=== PATIENT | female | born 1955 | race African-American/Black ===

== ENCOUNTER → 2017-05-31 | Outpatient (REF) | payer SELFPAY | LOC: M LAB REF 10:31 | DX: R10.815 Periumbilic abdominal tenderness (principal) ==

== ENCOUNTER 2017-06-11 05:05 | Inpatient (IN) | payer OTHER, SELFPAY ==
[2017-06-11 06:03] LABS: KETONE, URINE AUTO RFX NEGATIVE (NEGATIVE); MUCUS, URINE RFX SMALL (NEGATIVE); NITRITE, URINE AUTO RFX NEGATIVE (NEGATIVE); RBC, URINE AUTO RFX 3 /HPF (0-3); SPECIFIC GRAVITY UR AUTO RFX 1.032 (1.002-1.035); SQUAM EPITHELIAL CELL UR AURFX 4 /HPF (0-6); WBC, URINE AUTO RFX 6 /HPF (0-3)
[2017-06-11 06:06] LABS: LEUKOCYTE ESTERASE UR AUTO RFX TRACE (NEGATIVE)
[2017-06-11] MEDS: ONDANSETRON 4MG/2ML VIAL (J2405) IV (07:18)
[2017-06-11] MEDS: MORPHINE 4 MG/ML 1ML VIAL (J2270) IV ×2 (07:20→08:50)
[2017-06-11 07:46] LABS: BASO # 0.1 10^3/uL (0.0-0.2); BASO % 0.7 % (0.0-1.0); EOS # 1.4 10^3/uL (0.0-0.50); EOS % 14.9 % (0.0-3.0); HEMOGLOBIN 13.4 g/dl (12.0-16.0); IMMATURE GRANULOCYTE % 0.4 % (0-3.0); LYMPH # 2.7 10^3/uL (1.5-4.5); LYMPH % 28.5 % (24.0-44.0); MEAN CORPUSCULAR HEMOGLOBIN 29.7 pg (27.0-33.0); MEAN CORPUSCULAR HGB CONC 33.5 g/dl (32.0-36.5); MEAN CORPUSCULAR VOLUME 88.7 fl (80.0-96.0); MONO # 0.5 10^3/uL (0.0-0.8); MONO % 5.6 % (0.0-5.0); NEUTROPHILS # 4.7 10^3/uL (1.8-7.7); NEUTROPHILS % 49.9 % (36.0-66.0); PLATELET COUNT, AUTOMATED 382 10^3/uL (150-450); RED BLOOD COUNT 4.51 10^6/uL (4.00-5.40); RED CELL DISTRIBUTION WIDTH 13.2 % (11.5-14.5); WHITE BLOOD COUNT 9.5 10^3/uL (4.0-10.0)
[2017-06-11 07:57] LABS: ALBUMIN 4.2 GM/DL (3.2-5.2); ALBUMIN/GLOBULIN RATIO 0.91 (1.00-1.93); ALKALINE PHOSPHATASE 665 U/L (45-117); ALT/SGPT 826 U/L (12-78); ANION GAP 9 MEQ/L (8-16); AST/SGOT 535 U/L (7-37); BILIRUBIN,TOTAL 1.9 MG/DL (0.2-1.0); BLOOD UREA NITROGEN 24 MG/DL (7-18); CALCIUM LEVEL 9.7 MG/DL (8.8-10.2); CARBON DIOXIDE LEVEL 27 MEQ/L (21-32); CHLORIDE LEVEL 103 MEQ/L (98-107); CREATININE FOR GFR 1.36 MG/DL (0.55-1.30); GLOMERULAR FILTRATION RATE 50.8 (>45); GLUCOSE, FASTING 134 MG/DL (70-100); LIPASE 257 U/L (73-393); POTASSIUM SERUM 4.2 MEQ/L (3.5-5.1); SODIUM LEVEL 139 MEQ/L (136-145); TOTAL PROTEIN 8.8 GM/DL (6.4-8.2)
[2017-06-11] MEDS: NS 1,000 ML IV (08:50)
[2017-06-11] MEDS: fentaNYL 100 MCG/2 ML INJECTION (J3010) IV (11:15)
[2017-06-11] MEDS ORDERED: MORPHINE 4 MG/ML 1ML VIAL (J2270) IV (13:15)
[2017-06-11] MEDS: LR 1,000 ML IV ×2 (13:52→19:28)
[2017-06-11] MEDS: LISINOPRIL 40 MG TAB PO (14:15)
[2017-06-11] MEDS: OMEPRAZOLE 20 MG CAP PO (14:15)
[2017-06-11] MEDS: ATENOLOL 25 MG TAB PO (14:15)
[2017-06-11 17:50] LABS: ALBUMIN 3.6 GM/DL (3.2-5.2); ALBUMIN/GLOBULIN RATIO 0.92 (1.00-1.93); ALKALINE PHOSPHATASE 576 U/L (45-117); ALT/SGPT 810 U/L (12-78); AST/SGOT 531 U/L (7-37); BILIRUBIN,DIRECT 2.8 MG/DL (0.0-0.2); BILIRUBIN,TOTAL 3.6 MG/DL (0.2-1.0); TOTAL PROTEIN 7.5 GM/DL (6.4-8.2)
[2017-06-11] MEDS: ACETAMINOPHEN TAB 650MG DOSE (2X325MG) PO (19:28)
[2017-06-11] MEDS: AMPICILLIN SOD/SULBACTAM SOD 3 GM in D5W MINI-BAG PLUS 100 ML IV (21:09)
[2017-06-12] MEDS: AMPICILLIN SOD/SULBACTAM SOD 3 GM in D5W MINI-BAG PLUS 100 ML IV ×4 (02:58→20:44)
[2017-06-12] MEDS: LR 1,000 ML IV ×3 (05:50→20:45)
[2017-06-12 06:38] LABS: BASO % 0.5 % (0.0-1.0); EOS # 1.4 10^3/uL (0.0-0.50); HEMATOCRIT 33.4 % (36.0-47.0); IMMATURE GRANULOCYTE % 0.3 % (0-3.0); LYMPH # 1.8 10^3/uL (1.5-4.5); LYMPH % 30.1 % (24.0-44.0); MEAN CORPUSCULAR HEMOGLOBIN 29.8 pg (27.0-33.0); MEAN CORPUSCULAR HGB CONC 33.8 g/dl (32.0-36.5); MEAN CORPUSCULAR VOLUME 88.1 fl (80.0-96.0); MONO # 0.4 10^3/uL (0.0-0.8); MONO % 6.1 % (0.0-5.0); NEUTROPHILS # 2.5 10^3/uL (1.8-7.7); NEUTROPHILS % 40.5 % (36.0-66.0); PLATELET COUNT, AUTOMATED 302 10^3/uL (150-450); RED BLOOD COUNT 3.79 10^6/uL (4.00-5.40); RED CELL DISTRIBUTION WIDTH 13.3 % (11.5-14.5); WHITE BLOOD COUNT 6.1 10^3/uL (4.0-10.0)
[2017-06-12 07:00] LABS: EOS % 22.5 % (0.0-3.0); POSITIVE DIFF POS FLAG
[2017-06-12 07:03] LABS: HEMOGLOBIN 11.3 g/dl (12.0-16.0)
[2017-06-12 07:06] LABS: ALBUMIN 3.1 GM/DL (3.2-5.2); ALBUMIN/GLOBULIN RATIO 0.82 (1.00-1.93); ALKALINE PHOSPHATASE 502 U/L (45-117); ALT/SGPT 684 U/L (12-78); ANION GAP 7 MEQ/L (8-16); AST/SGOT 371 U/L (7-37); BLOOD UREA NITROGEN 12 MG/DL (7-18); CALCIUM LEVEL 8.8 MG/DL (8.8-10.2); CARBON DIOXIDE LEVEL 28 MEQ/L (21-32); CHLORIDE LEVEL 107 MEQ/L (98-107); GLOMERULAR FILTRATION RATE > 60.0 (>45); GLUCOSE, FASTING 106 MG/DL (70-100); POTASSIUM SERUM 3.7 MEQ/L (3.5-5.1); SODIUM LEVEL 142 MEQ/L (136-145); TOTAL PROTEIN 6.9 GM/DL (6.4-8.2)
[2017-06-12] MEDS: OMEPRAZOLE 20 MG CAP PO (08:00)
[2017-06-12] MEDS: LISINOPRIL 40 MG TAB PO (08:01)
[2017-06-12] MEDS: ATENOLOL 25 MG TAB PO (08:02)
[2017-06-13] MEDS: ONDANSETRON 4MG/2ML VIAL (J2405) IV (01:19)
[2017-06-13] MEDS: KETOROLAC 30 MG/ML VIAL (J1885) IV (02:08)
[2017-06-13] MEDS: AMPICILLIN SOD/SULBACTAM SOD 3 GM in D5W MINI-BAG PLUS 100 ML IV ×3 (02:08→15:00)
[2017-06-13] MEDS: MORPHINE 4 MG/ML 1ML VIAL (J2270) IV (02:25)
[2017-06-13] MEDS: LR 1,000 ML IV ×4 (05:04→22:58)
[2017-06-13 06:53] LABS: ALBUMIN 2.9 GM/DL (3.2-5.2); ALBUMIN/GLOBULIN RATIO 0.78 (1.00-1.93); ALKALINE PHOSPHATASE 434 U/L (45-117); ALT/SGPT 572 U/L (12-78); ANION GAP 9 MEQ/L (8-16); AST/SGOT 278 U/L (7-37); BILIRUBIN,TOTAL 2.5 MG/DL (0.2-1.0); BLOOD UREA NITROGEN 9 MG/DL (7-18); CALCIUM LEVEL 8.6 MG/DL (8.8-10.2); CARBON DIOXIDE LEVEL 27 MEQ/L (21-32); CHLORIDE LEVEL 107 MEQ/L (98-107); CREATININE FOR GFR 0.84 MG/DL (0.55-1.30); GLOMERULAR FILTRATION RATE > 60.0 (>45); GLUCOSE, FASTING 119 MG/DL (70-100); POTASSIUM SERUM 3.4 MEQ/L (3.5-5.1); SODIUM LEVEL 143 MEQ/L (136-145); TOTAL PROTEIN 6.6 GM/DL (6.4-8.2)
[2017-06-13] MEDS: ATENOLOL 25 MG TAB PO (08:47)
[2017-06-13] MEDS: LISINOPRIL 40 MG TAB PO (08:47)
[2017-06-13] MEDS: OMEPRAZOLE 20 MG CAP PO (08:47)
[2017-06-13] MEDS: KCL 10MEQ/100ML SWI (KRUN) 10 MEQ in APPROPRIATE DILUENT 1 EA IV ×4 (10:30→17:44)
[2017-06-13] MEDS ORDERED: ISOVUE-370 76% 100ML VIAL (Q9967) As Ordered (10:58)
[2017-06-13] MEDS: INDOMETHACIN 50 MG SUPPOSITORY (INDOCIN) PR (12:45)
[2017-06-13] MEDS ORDERED: LIDOCAINE 2% INJ 100 MG/5 ML SDV (FOR ANES.) As Ordered (13:18)
[2017-06-13] MEDS ORDERED: fentaNYL 100 MCG/2 ML INJECTION (J3010) As Ordered (13:18)
[2017-06-13] MEDS ORDERED: ROCURONIUM BROMIDE 50 MG/5 ML VIAL As Ordered (13:18)
[2017-06-13] MEDS ORDERED: PROPOFOL 200 MG/20 ML VIAL As Ordered (13:18)
[2017-06-13] MEDS ORDERED: MIDAZOLAM INJ 2 MG/2 ML VIAL (J2250) As Ordered (13:18)
[2017-06-13] MEDS: INDOMETHACIN 50 MG SUPPOSITORY (INDOCIN) As Ordered ×2 (14:04)
[2017-06-13] MEDS: ISOVUE-300 61% 50ML VIAL (Q9967) As Ordered (14:30)
[2017-06-13] MEDS ORDERED: NEOSTIGMINE 10 MG/10 ML VIAL (J2710) As Ordered (14:50)
[2017-06-13] MEDS ORDERED: GLYCOPYRROLATE INJ 0.2 MG/ML 2 ML VIAL As Ordered (14:50)
[2017-06-13] MEDS ORDERED: dexameTHASONE 4 MG/ML 1ML VIAL (J1100) As Ordered (14:51)
[2017-06-13] MEDS ORDERED: ONDANSETRON 4MG/2ML VIAL (J2405) As Ordered (14:51)
[2017-06-13] MEDS ORDERED: KETOROLAC 60 MG/2 ML VIAL (J1885) As Ordered (14:51)
[2017-06-13] MEDS: UNASYN 1.5 GM VIAL As Ordered (15:02)
[2017-06-13] MEDS ORDERED: fentaNYL 100 MCG/2 ML INJECTION (J3010) IV (16:00)
[2017-06-13] MEDS ORDERED: PERCOCET 5MG/325MG TAB PO (16:00)
[2017-06-13] MEDS ORDERED: HYDROmorphone HCL 1 MG/ML SYRINGE (J1170) IV (16:00)
[2017-06-13] MEDS ORDERED: ONDANSETRON 4MG/2ML VIAL (J2405) IV (16:00)
[2017-06-13] MEDS: PANTOPRAZOLE 40MG INJ (PROTONIX) (C9113) IV (17:21)
[2017-06-14] MEDS: PANTOPRAZOLE 40MG INJ (PROTONIX) (C9113) IV (04:53)
[2017-06-14] MEDS: LR 1,000 ML IV (06:46)
[2017-06-14 08:08] LABS: ALBUMIN 2.8 GM/DL (3.2-5.2); ALBUMIN/GLOBULIN RATIO 0.68 (1.00-1.93); ALKALINE PHOSPHATASE 422 U/L (45-117); ALT/SGPT 551 U/L (12-78); ANION GAP 9 MEQ/L (8-16); AST/SGOT 217 U/L (7-37); BLOOD UREA NITROGEN 9 MG/DL (7-18); CALCIUM LEVEL 8.5 MG/DL (8.8-10.2); CARBON DIOXIDE LEVEL 25 MEQ/L (21-32); CHLORIDE LEVEL 107 MEQ/L (98-107); CREATININE FOR GFR 0.88 MG/DL (0.55-1.30); GLOMERULAR FILTRATION RATE > 60.0 (>45); GLUCOSE, FASTING 88 MG/DL (70-100); LIPASE 91 U/L (73-393); POTASSIUM SERUM 3.9 MEQ/L (3.5-5.1); SODIUM LEVEL 141 MEQ/L (136-145); TOTAL PROTEIN 6.9 GM/DL (6.4-8.2)
[2017-06-14] MEDS: LISINOPRIL 40 MG TAB PO (09:10)
[2017-06-14] MEDS: ATENOLOL 25 MG TAB PO (09:10)
== END 2017-06-14 11:27 | disposition home or self-care (01) | DRG 446 ==
LOC: M ED 05:05 → M ED INP 13:04 → M MSPAV 15:24
PROC: 0FC98ZZ Extirpation of Matter from Common Bile Duct, Via Natural or Artificial Opening Endoscopic (ICD-10-PCS; principal; 2017-06-13 09:57)
DX: K80.63 Calculus of gallbladder and bile duct with acute cholecystitis with obstruction (principal); I10 Essential (primary) hypertension; M16.11 Unilateral primary osteoarthritis, right hip; K21.9 Gastro-esophageal reflux disease without esophagitis; I49.9 Cardiac arrhythmia, unspecified; M54.9 Dorsalgia, unspecified; Z87.891 Personal history of nicotine dependence; Z79.899 Other long term (current) drug therapy